=== PATIENT | female | born 1980 | race Caucasian/White ===

== ENCOUNTER 2016-12-30 17:05 | Inpatient (IN) | payer MEDICAID, SELFPAY ==
[2016-12-30] MEDS: Lactated Ringers 1,000 ML 50 ML IV ×3 (16:44→23:43)
[2016-12-30 16:59] VITALS: BMI 43.1
[2016-12-30 17:46] LABS: Absolute Lymphocyte Count 1.57 X10^3/ul (0.83-4.51); Absolute Neutrophil Count 3.9 X10^3/uL (2.0-7.7); Eosinophil# 0.05 X10^3/uL; Eosinophils% 0.9 % (0-5); Hematocrit 35.3 % (37-47); Hemoglobin 11.8 g/dl (12.0-15.0); Lymphocyte # 1.57 X10^3/ul (4.0); Lymphocyte % 26.8 % (19-41); Mean Corp Hgb Conc 33.4 g/gl (32-36); Mean Corpuscular Volume 92.7 fL (81-99); Mean Platelet Vol. 12.6 fl (6.2-12.0); Monocyte# 0.33 X10^3/uL; Monocyte% 5.6 % (0-10); Neutrophil % 66.5 % (47-70); POSITIVE COUNT NO; POSITIVE DIFFERENTIAL NO; POSITIVE MORPHOLOGY NO; Platelet Count 113 K/mm3 (150-450); RBC Distribution Width CV 13.5 % (11.6-14.6); Red Blood Count 3.81 M/mm3 (4.2-5.4); White Blood Count 5.9 K/mm3 (4.4-11.0)
[2016-12-30 17:55] LABS: International Normalized Ratio 1.1; Prothrombin Time (Protime)PT. 13.3 SECONDS (11.7-14.9)
[2016-12-30 17:56] LABS: Partial Thromboplast Time 28.4 Seconds (24.1-36.2)
[2016-12-30 18:34] LABS: Uric Acid 6.3 mg/dL (2.6-6.0)
[2016-12-30 18:38] LABS: AST(SGOT) 12 U/L (15-37); Alanine Aminotransfer ALT/SGPT 16 U/L (12-78)
[2016-12-30 19:14] LABS: Bacteria 0 SEEN /hpf (None Seen); Mucous, Urine 0 SEEN /hpf (<or=2+); Red Blood Cells-Urine 0 SEEN /hpf (0-5); Squamous Epithelial Cells - UA 0 SEEN /hpf (5-10); White Blood Cells 0 SEEN /hpf (0-5)
[2016-12-30 19:16] LABS: Color, Urine Yellow (Yellow); Glucose, Dipstick Normal (Normal); Leukocyte Esterase-Dipstick Negative /ul (Negative); Nitrite-Dipstick Negative (Negative); Occult Blood-Urine Negative /ul (Negative); Protein-Dipstick Negative (Negative); Specific Gravity, Urine 1.015 (1.002-1.030); Urine Bilirubin Dipstick Negative (Negative); Urine Clarity Sl. Cloudy (Clear); Urine Urobilinogen Normal (Normal)
[2016-12-30 19:25] LABS: Protein, Urine (Random) 23.7 mg/dL (<11.9); Protein:Creat Ratio 243 mg/g CRE (0-200)
[2016-12-30 19:57] LABS: Ketone-Dipstick 150 mg/dl (Negative)
[2016-12-30 19:58] LABS: Group B Strep DNA By PCR Negative (Negative); Internal Control PASS; Probe Check PASS; Specimen Processing Control PASS
--- NOTE | 2016-12-30 20:58 | PCM.HP.OB ---
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 - records reviewed Prior FT x 6 History preeclampsia Chronic UTI and yeast infections 1 visit in [facility] office today Allergies No Known Allergies Allergy (Verified 12/30/16 17:02) Current Medications Acetaminophen (Tylenol) 325 - 650 mg PO Q4H PRN PRN PRN Reason: PAIN OR FEVER >100.4F Al Hydroxide/Mg Hydroxide (Mylanta Ii) 15 - 30 ml PO Q4H PRN PRN PRN Reason: INDIGESTION Citric Acid/Sodium Citrate (Bicitra) 30 ml PO UD PRN Lactated Ringer's () 1,000 mls @ 50 mls/hr IV .Q20H [facility] Last Admin: 12/30/16 18:30 Dose: 50 mls/hr Nalbuphine HCl (Nubain) 5 - 10 mg IV Q3H PRN PRN PRN Reason: PAIN (-12/30) Ondansetron HCl (Zofran) 4 mg IV Q8H PRN PRN PRN Reason: NAUSEA Promethazine HCl (Phenergan (Ll)) 6.25 - 12.5 mg IV Q4H PRN PRN; Protocol PRN Reason: IF NAUSEA PERSISTS Sodium Chloride () 5 - 15 ml IV UD [facility] Last Admin: 12/30/16 19:44 Dose: Not Given Smoking Status: Never smoker Alcohol: None Drug Use: none Number of Fetus(es): 1 Physical Exam General: Alert, Oriented x3 Presentation: Cephalic Cervix Dilation (cm): 5.5 Station: -3 Effacement (%): 60 Assessment/Plan 36yo female in labor at 39 weeks Admit to L&D Patient with gestational vs chronic hypertension, preE labs reviewed S/p AROM for slightly blood tinged fluid Augment with pitocin if needed Pain - comfortable with epidural Malpresentation - ear palpable, plan for position changes Plan of care discussed with patient & all questions answered PNB ordered as no formal PNC
[2016-12-30 20:59] LABS: ALB/GLOB Ratio 0.7 RATIO (0.9-2.4); AST(SGOT) 12 U/L (15-37); Alanine Aminotransfer ALT/SGPT 14 U/L (12-78); Albumin, Serum 2.8 g/dL (3.4-5.0); Alkaline Phosphatase 193 U/L (45-117); Anion Gap 12 (5-15); BUN 7 mg/dL (7-18); Calcium,Total 8.3 mg/dL (8.5-10.1); Chloride 107 mmol/L (98-107); Creatinine, Serum 0.47 mg/dL (0.55-1.02); EST Glomerular Filtration Rate 160 mL/min (>60); Est Glom Filt Rate - Afr Amer 193 mL/min (>60); Estimated Creatinine Clearance 141.52 ml/min; Globulin 4.3 g/dL (2.3-3.5); Glucose 77 mg/dL (70-110); Potassium 3.7 mmol/L (3.5-5.1); Protein, Total 7.1 g/dL (6.4-8.2); Sodium Level 139 mmol/L (136-145)
--- NOTE | 2016-12-30 21:08 | HP.PCM_ITS ---
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 - records reviewed Prior FT x 6 History preeclampsia Chronic UTI and yeast infections 1 visit in [facility] office today Allergies No Known Allergies Allergy (Verified 12/30/16 17:02) Current Medications Acetaminophen (Tylenol) 325 - 650 mg PO Q4H PRN PRN PRN Reason: PAIN OR FEVER >100.4F Al Hydroxide/Mg Hydroxide (Mylanta Ii) 15 - 30 ml PO Q4H PRN PRN PRN Reason: INDIGESTION Citric Acid/Sodium Citrate (Bicitra) 30 ml PO UD PRN Lactated Ringer's () 1,000 mls @ 50 mls/hr IV .Q20H [facility] Last Admin: 12/30/16 18:30 Dose: 50 mls/hr Nalbuphine HCl (Nubain) 5 - 10 mg IV Q3H PRN PRN PRN Reason: PAIN (-12/30) Ondansetron HCl (Zofran) 4 mg IV Q8H PRN PRN PRN Reason: NAUSEA Promethazine HCl (Phenergan (Ll)) 6.25 - 12.5 mg IV Q4H PRN PRN; Protocol PRN Reason: IF NAUSEA PERSISTS Sodium Chloride () 5 - 15 ml IV UD [facility] Last Admin: 12/30/16 19:44 Dose: Not Given Smoking Status: Never smoker Alcohol: None Drug Use: none Number of Fetus(es): 1 Physical Exam General: Alert, Oriented x3 Presentation: Cephalic Cervix Dilation (cm): 5.5 Station: -3 Effacement (%): 60 Assessment/Plan 36yo female in labor at 39 weeks Admit to L&D Patient with gestational vs chronic hypertension, preE labs reviewed S/p AROM for slightly blood tinged fluid Augment with pitocin if needed Pain - comfortable with epidural Malpresentation - ear palpable, plan for position changes Plan of care discussed with patient & all questions answered PNB ordered as no formal PNC
[2016-12-30 22:27] LABS: Chlamydia Trachomatis by PCR Negative (Negative); Neisserai gonorrhoeae by PCR Negative (Negative); Probe Check PASS; Sample Adequacy Control PASS; Specimen Processing Control PASS
[2016-12-31] MEDS: Oxytocin 30 units/NS 500 ml 30 UNITS/500 ML IV.SOLN IV (02:34)
--- NOTE | 2016-12-31 05:07 | PCM.PN.BLA ---
Progress Note S: Patient comfortable with epidural O: cvx - 7/80/-2, cephalic (ear no longer palpable) fhts 130's with mod variability, accels, occ variables tocos irregular TAUS - vtx fetus A&P:start pitocin for labor augmentation, patient with slow cervical change Bp's normal Plan discussed with patient & her , all questions answered
[2016-12-31] MEDS: Lactated Ringers 1,000 ML 50 ML IV (05:09)
--- NOTE | 2016-12-31 07:18 | PCM.PN.BLA ---
Progress Note S: Patient comfortable with epidural O: cvx - 8/80/-2 fhts 125 with mod variability, occ variable tocos Q2-4 min A&P: cont pit induction Angelica Baltazar, kaila & taking over care
[2016-12-31] MEDS: Oxytocin 30 units/NS 500 ml 30 UNITS/500 ML IV.SOLN 334 UNITS IV (08:30)
--- NOTE | 2016-12-31 09:09 | PCM.OB.VAG ---
Vaginal Delivery Maternal Presentation: Medically Indicated Induction Method of Induction: Pitocin, Amniotomy Medical Reason for Induction: Gestational Hypertension Amniotic Membrane Rupture Type: Artificial Amniotic Fluid Description: Clear Final ROWDY: 01/06/17 Final ROWDY Source: LMP Gestational age: 39 Weeks and 1 Days Date of Procedure: 12/31/16 Pre-Operative Diagnosis: Labor Post-Operative Diagnosis: Surgery/ Procedure Performed: Spontaneous Vaginal Delivery Type of Anesthesia: Epidural Description of Procedure: of viable male over intact perineum. Vigorous infant with spontaneous cry and respirations. Baby placed on maternal chest and skin to skin initiated. Placenta delivered spontaneously via Garrison mechanism intact with 3VC. Cord blood sample collected. No vaginal lacerations noted. Vaginal sweep done, total EBL = 150cc. Sponge and needle count correct. Bonding and initiated. Presentation: ROGER Placental Delivery Description: Spontaneous Placenta Disposition: [facility] Cord Vessel Description: 3 Vessels Nuchal Cord Compression: Without compression Cord Entanglement: Around neck x 1, loose Drain: Cantor to straight drain - Removed during second stage Estimated Blood Loss: 150 Infant A gender: Male Episiotomy Description: None Laceration: None Medications given after delivery: IV Pitocin Complications: None
[2016-12-31 09:17] LABS: Rubella IgG 248.1 IU/mL
[2016-12-31 12:25] VITALS: BP 123/80; PULSE 99; RESP 18; TEMP 36.8; O2SAT 98
[2016-12-31] MEDS: Ibuprofen 600 MG Tablet PO (14:40)
[2016-12-31 16:44] VITALS: BP 111/63; PULSE 98; RESP 14; TEMP 36.9
[2016-12-31 20:30] VITALS: BP 128/68; PULSE 95; RESP 16; TEMP 36.8
--- NOTE | 2016-12-31 22:00 | NURSING ---
2129 mother requesting formula for , this is her seveneth states she using it with all her babes but still brestfeeds for 13-15months. discussed reasons for exclusively with benefits states she wants to give formula as way to help bring bilirubin down, discussed bilirubin and antibodies with babe being faith positive and that formula will not help with these, still requesting formula, then called for a huddle with dr. bedolla and Jong lafleur RN.
[2017-01-01] VITALS: BP 121/78; PULSE 85; RESP 18; TEMP 36.2
[2017-01-01 04:00] VITALS: BP 123/71; PULSE 88; RESP 18; TEMP 36.3
[2017-01-01 06:38] LABS: Hematocrit 31.3 % (37-47); Hemoglobin 10.1 g/dl (12.0-15.0); Mean Corp Hgb Conc 32.3 g/gl (32-36); Mean Corpuscular Hgb 30.4 pg (27.0-32.0); Mean Corpuscular Volume 94.3 fL (81-99); Mean Platelet Vol. 12.2 fl (6.2-12.0); Platelet Count 91 K/mm3 (150-450); RBC Distribution Width CV 13.6 % (11.6-14.6); RBC Distribution Width SD 46.8 fl (35.1-43.9); Red Blood Count 3.32 M/mm3 (4.2-5.4); White Blood Count 7.4 K/mm3 (4.4-11.0)
[2017-01-01 06:39] LABS: Scan Indicated on CBC? Y/N NO
[2017-01-01 07:33] VITALS: BP 115/79; PULSE 87; RESP 16; TEMP 36.2
[2017-01-01 08:11] LABS: HIV 1/0/2 SCREEN 4TH GEN Non Reactive (Non Reactive)
--- NOTE | 2017-01-01 08:14 | DCINST_ITS ---
Discharge Diet: No Restrictions Discharge Activity: Return to Normal Activity, May not drive while taking narcotic pain medications., May Shower May resume sexual activity in: 4-6 weeks Additional Activity Instructions:: Nothing in the vagina for 4-6 weeks. You may return to work/school in 6 weeks. Call your doctor if your incision/area has: Continuous Slow Oozing, Sudden Increased Bleeding, Increased Pain/ Swelling, Increased Redness, Foul Smelling Discharge Additional Instructions: If you experience any of the following, contact your healthcare provider. * Bleeding that soaks a pad every hour for 2 hours * Fever 100.4 or higher * Unrelieved incision or abdominal pain * Swelling, redness, discharge or bleeding from your incision or episiotomy site * Your incision begins to separate * Problems urinating (including inability to urinate or burning while urinating) . * Visual changes * Severe headache * Flu-like symptoms * Pain or redness in one of both of your breasts * Pain, warmth, tenderness or swelling in your legs, especially the calf area * Frequent nausea and vomiting * Symptoms of depression or anxiety If you experience any of the following, call 911 or go to the nearest Emergency Room. * Chest pain * Problems breathing * Seizure activity * Partial or complete paralysis of a body part, slurred speech, weakness or drooping of the face, or a sudden inability to walk or hold your balance Allergies/Adverse Reactions: Allergies No Known Allergies Allergy (Verified 12/30/16 17:02) Medications to take at Discharge Cranberry Conc/Ascorbic Acid [Cranberry 12,600 mg Softgel] 1 each PO 12/30/16 Vit No.130/Iron/FA [ Tablet] 1 each PO 12/30/16 Ibuprofen 600 mg PO Q6H PRN PRN #30 tablet 01/01/17 The following prescriptions were given: Ibuprofen 600 mg PO Q6H PRN PRN #30 tablet PRN Reason: Mild-Mod Pain (1-07/30) When: Call to make an appointment with your doctor in 6 weeks. If you had elevated Blood Pressure or 4th degree laceration you will need to be seen in 2 weeks. Primary Care Physician: Jhonny Flowers MD [Primary Care Provider] -
--- NOTE | 2017-01-01 08:14 | PCM.PN.OB ---
Subjective: S: Patient resting at this time, reports that no issues throughout night. Baby has intermittently been , she is electing to use formula also to help provide nutrition to baby as several of her other children have had jaundice. This baby is Maritza positive. Patient notes no issues with bleeding, denies any urinary issues. Interested in discharge to home today if baby is also discharged. Objective: VSS, Afebrile Hgb = 11.8 --> 10.1 Breasts soft, filling, nipples without cracks or blisters Abdomen non-tender x 4 quadrants, FF @ umbilicus Small rubra lochia, perineum intact Neg calf tenderness to palpation, trace pedal edema - Physical Exam General: Alert, Oriented x3, Cooperative HEENT: Atraumatic, Normocephalic Oral: Moist Mucosa Neck: Supple Lungs: Normal air movement Cardiovascular: Regular rate Abdomen: Soft, Non Tender, Gravid Extremities: No edema Skin: No rashes, No breakdown Musculoskeletal: No Tenderness to Palpation of Joints or Extremities Neurological: Cranial nerves II-XII grossly intact Psych/Mental Status: Normal Affect, Appropriate, Alert and oriented to time, place, person, mood and affect Vital Signs Temp Pulse Resp BP Pulse Ox 97.2 F 87 16 115/79 98 01/01/17 07:33 01/01/17 07:33 01/01/17 07:33 01/01/17 07:33 12/31/16 12:25 Oxygen Delivery Method Room Air Weight: 251 lb 5.231 oz Body Mass Index (BMI) 43.1 Intake and Output for Last 24 Hours 12/30/16 12/31/16 01/01/17 23:59 23:59 23:59 Intake Total 4408 Output Total 1750 Balance 2658 Laboratory Tests Past 24 Hrs 12/30/16 01/01/17 17:25 06:20 WBC 7.4 RBC 3.32 L Hgb 10.1 L Hct 31.3 L MCV 94.3 MCH 30.4 MCHC 32.3 RDW 13.6 RDW Differential 46.8 H Plt Count 91 L MPV 12.2 H Rubella IgG Antibody 248.1 Assessment/Plan A: 36 y/o , PPD #1 s/p P: Anticipate discharge to home pending discharge Discharge teaching reviewed Follow-up with OB/CNM in 6 weeks for visit Angelica Baltazar CNM
[2017-01-01 14:00] VITALS: BP 135/76; PULSE 91; RESP 18; TEMP 36.4
[2017-01-01 20:20] VITALS: BP 138/96; PULSE 78; RESP 16; TEMP 36.1
[2017-01-02 02:00] VITALS: BP 128/76; PULSE 89; RESP 16; TEMP 36.8
[2017-01-02 03:56] LABS: Rapid Plasmin Reagin (RPR) NONREACTIVE (NONREACTIVE)
[2017-01-02] MEDS: Ibuprofen 600 MG Tablet PO (05:00)
[2017-01-02 08:13] VITALS: BP 133/81; PULSE 81; RESP 16; TEMP 36.9; O2SAT 96
--- NOTE | 2017-01-02 09:20 | PCM.PN.BLA ---
Progress Note S: Patient did not leave last night as baby's bilirubin levels were still elevated. Baby's bilirubin levels have decreased now and patient plans to be discharged to home today. Patient reports she did not receive Diflucan medication for her yeast infection and that she desires to receive that before she goes home. Otherwise patient denies any issues or concerns. O: VSS, afebrile Nipples without cracks or blisters Abdomen soft, NT x 4 quadrants No edema noted in lower extremities, negative calf tenderness noted Scant rubra lochia, intact perineum A: 36 y/o , PPD #2, Normal PP course following P: 1) Discharge to home 2) Diflucan 150mg PO x1 for yeast infection 3) Patient declines contraception, will use NANCE at this time 4) Recommend f/u for PP visit at 6 weeks PP, patient reports she may do f/u visits with her community-based insurance sales manager Lizzie Baltazar CNM
[2017-01-02] MEDS: FLUCONAZOLE 150 MG TABLET PO (10:15)
[2017-01-02 11:38] VITALS: BP 107/71; PULSE 91; RESP 18; TEMP 36.7; O2SAT 95
[2017-01-02 15:58] LABS: HEPATITIS B SURFACE AG Negative (Negative); Hep C Antibodies <0.1 s/co ratio (0.0-0.9)
== END 2017-01-02 12:30 | disposition home or self-care (01) | DRG 774 ==
PROVIDERS: Obstetrics & Gynecology; Admitting Provider Obstetrics & Gynecology; Family Provider Family Medicine; PCP Family Medicine; Visit Provider Obstetrics & Gynecology
DX: O13.4 Gestational [pregnancy-induced] hypertension without significant proteinuria, complicating childbirth (principal); O98.82 Other maternal infectious and parasitic diseases complicating childbirth; O69.82X0 Labor and delivery complicated by other cord entanglement, without compression, not applicable or unspecified; B37.9 Candidiasis, unspecified; O32.8XX0 Maternal care for other malpresentation of fetus, not applicable or unspecified; Z3A.39 39 weeks gestation of pregnancy; Z37.0 Single live birth
CPT/HCPCS: 59025; 59050; 80053; 81001; 82570; 84156; 84450; 84460; 84550; 85025; 85027; 85610; 85730; 86592; 86703; 86762; 86803; 86850; 86900; 87081; 87086; 87088; 87340; 87491; 87591; 87653; 99218; J7120; A4216; G0378

== ENCOUNTER 2020-10-27 20:45 | Outpatient (CLI) | payer OTHER, SELFPAY ==
[2020-10-27] VITALS (37 sets, daily range): BP systolic 120–182; BP diastolic 68–103; PULSE 86–108; RESP 16; TEMP 36.6–37.1; O2SAT 93–98; BMI 47.9
[2020-10-27] MEDS: Labetalol (Prefilled) 20 MG/4 ML IV (21:53)
[2020-10-27 21:54] LABS: ROM Internal Control Test YES-OK TO RESULT pt. (Internal QC); ROM Patient Test Negative (Negative)
[2020-10-27] MEDS: Magnesium Sulfate 4gm/100mL 2 GM/50 ML IV.SOLN. IV (22:15)
[2020-10-27 22:17] LABS: Color, Urine Yellow (Yellow); Glucose, Dipstick Normal (Normal); Ketone-Dipstick 5 mg/dl (Negative); Leukocyte Esterase-Dipstick Negative /ul (Negative); Nitrite-Dipstick Negative (Negative); Occult Blood-Urine Negative /ul (Negative); Protein-Dipstick Negative (Negative); Urine Bilirubin Dipstick Negative (Negative); Urine Clarity Sl. Cloudy (Clear); Urine Urobilinogen Normal (Normal); Urine pH 6.5 (5.0 - 8.0)
[2020-10-27 22:18] LABS: Absolute Lymphocyte Count 1.41 X10^3/uL (0.83-4.51); Absolute Neutrophil Count 5.2 X10^3/uL (2.0-7.7); Basophil# 0.01 X10^3/uL; Basophil% 0.1 % (0-1); Eosinophil# 0.22 X10^3/uL; Eosinophils% 3.1 % (0-5); Hematocrit 36.4 % (37-47); Hemoglobin 12.1 g/dL (12.0-15.0); Lymphocyte # 1.41 X10^3/ul (0.83-4.51); Lymphocyte % 19.6 % (19-41); Mean Corp Hgb Conc 33.2 g/dL (32-36); Mean Corpuscular Hgb 30.7 pg (27.0-32.0); Mean Corpuscular Volume 92.4 fL (81-99); Mean Platelet Vol. 14.3 fl (6.2-12.0); Monocyte# 0.39 X10^3/uL; Monocyte% 5.4 % (0-10); NRBC Flagged by Analyzer 0 % (0-5); Neutrophil # 5.15 X10^3/uL (2.7-7.7); Neutrophil % 71.5 % (47-70); Platelet Count 128 K/mm3 (150-450); RBC Distribution Width CV 13.1 % (11.6-14.6); RBC Distribution Width SD 43.8 fl (35.1-43.9); Red Blood Count 3.94 M/mm3 (4.2-5.4); White Blood Count 7.2 K/mm3 (4.4-11.0)
[2020-10-27] MEDS: Magnesium Sulfate 4gm/100mL 4 GM/100 ML IV.SOLN. IV (22:22)
[2020-10-27] MEDS: Magnesium Sulfate 20 GM/500 ML BAG IV (22:25)
[2020-10-27] MEDS: Labetalol (Prefilled) 20 MG/4 ML 40 MG IV (22:30)
[2020-10-27] MEDS: Betamethasone/Betamethasone 30 MG/5 ML Vial 12 MG IM (22:35)
[2020-10-27 22:38] LABS: Bacteria 0 SEEN /hpf (None Seen); Mucous, Urine 0 SEEN /hpf (<or=2+); Red Blood Cells-Urine 0 SEEN /hpf (0-5); Squamous Epithelial Cells - UA 0 SEEN /hpf (5-10); White Blood Cells 0 SEEN /hpf (0-5)
[2020-10-27 22:42] LABS: ALB/GLOB Ratio 0.6 RATIO (0.9-2.4); AST(SGOT) 22 U/L (15-37); Alanine Aminotransfer ALT/SGPT 29 U/L (13-56); Albumin, Serum 2.7 g/dL (3.2-5.0); Alkaline Phosphatase 239 U/L (45-117); Anion Gap 12 (5-15); BUN 8 mg/dL (7-18); BUN/Creat Ratio 16.2 RATIO (10-20); Calcium,Total 8.7 mg/dL (8.5-10.1); Chloride 109 mmol/L (98-107); EST Glomerular Filtration Rate 146 mL/min (>60); Est Glom Filt Rate - Afr Amer 177 mL/min (>60); Estimated Creatinine Clearance 127.86 ml/min; Globulin 4.3 g/dL (2.2-4.2); Glucose 73 mg/dL (74-106); LDH 168 U/L (84-246); Potassium 3.4 mmol/L (3.5-5.1); Sodium Level 139 mmol/L (136-145)
[2020-10-27 22:50] LABS: Protein, Urine (Random) < 6.0 mg/dL (<11.9)
[2020-10-27 23:01] LABS: Color, Urine Yellow (Yellow); Urine Clarity Sl Cloudy (Clear)
[2020-10-27 23:02] LABS: Glucose, Dipstick Normal (Normal); Ketone-Dipstick 5 mg/dl (Negative); Leukocyte Esterase-Dipstick Negative /ul (Negative); Nitrite-Dipstick Negative (Negative); Occult Blood-Urine Negative /ul (Negative); Protein-Dipstick Negative (Negative); Urine Bilirubin Dipstick Negative (Negative); Urine Urobilinogen Normal (Normal); Urine pH 6.5 (5.0 - 8.0)
[2020-10-27] MEDS: Labetalol (Prefilled) 20 MG/4 ML 80 MG IV (23:05)
--- NOTE | 2020-10-27 23:14 | PCM.HP.BLA ---
History and Physical Date of Admission: 10/27/20 Chief complaint: Leakage of fluid History of present illness: 40-year-old G 15 P7 at 33 weeks and 1 day with ROWDY: 12/14/2020 by LMP arrives with leakage of clear fluid. Denies headache, visual changes, chest pain, shortness of breath, nausea vomiting, right upper quadrant pain. Patient states good movement. 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 Patient's previous pregnancies have questionable hypertensive issues, patient poor historian uncertain of hypertensive issues was never given medications Past medical history: Questionable chronic hypertension Medications: None Past surgical history: Cholecystectomy Allergies: No known drug allergies Social history: Denies smoking, alcohol use, drug use Family history: Denies history DVT or PE Review of systems: Besides the above pertinent positives a full review of systems was performed and found to be negative Physical exam: Vitals: Blood pressure 138/79 pulse 88 SPO2 93% on room air General: Normal-appearing no acute distress HEENT: Normocephalic atraumatic no cervical of adenopathy Cardiac/respiratory: Nonlabored breathing, no use of accessory muscles Abdomen: Soft, nontender, gravid Extremities: No peripheral edema normal peripheral pulses Psych: Normal affect normal demeanor nonpressured speech Bedside ultrasound: Cephalic. KEKE within normal limits Assessment plan: 40-year-old G 15 P7 at 33 weeks and 1 day arrives with leakage of fluid, rule out rupture negative ROM KEKE within normal limits at bedside. Blood patient with severe range blood pressures that are persistent now status post labetalol IV 20 mg, 40mg, 80mg. Given labetalol 200 mg p.o. HELLP labs with mild thrombocytopenia, otherwise within normal limits. Patient asymptomatic. Started on magnesium 6 g bolus to run at 2 g an hour. Cervix currently 3 cm, painful contractions based on this information will treat as labor given Celestone and started on penicillin. Educated patient on these findings and discuss risks of stroke, heart attack, seizures along with risks. Discussed magnesium for treatment of blood pressure control. Educated patient on delivery plan at 34 weeks if blood pressure stable and cervix unchanged. Based on need for antepartum stay discussed with Dr. Vasquez [facility] transport to [facility], Dr. Vasquez agrees. Educated patient on transport plan, patient agrees. To transport to [facility] [place]
[2020-10-27 23:18] LABS: Amphetamine Urine VISTA NEGATIVE (<1000 ng/mL); Barbiturate Urine VISTA NEGATIVE (< 200 ng/mL); Benzodiazepine Urine VISTA NEGATIVE (< 200 ng/mL); Cocaine Urine VISTA NEGATIVE (< 300 ng/mL); Ecstacy Urine VISTA NEGATIVE (< 500 ng/mL); Methadone Urine VISTA NEGATIVE (< 300 ng/mL); PCP Urine VISTA NEGATIVE (< 25 ng/mL); THC Urine VISTA NEGATIVE (< 50 ng/mL); Vista UDS pH Range 6
[2020-10-27] MEDS: Labetalol 200 MG Tablet PO (23:30)
[2020-10-27 23:31] LABS: Group B Strep DNA By PCR Negative (Negative); Internal Control PASS; Probe Check PASS; Specimen Processing Control PASS
[2020-10-28 00:03] VITALS: PULSE 88; O2SAT 97
[2020-10-28 00:05] VITALS: O2SAT 93
[2020-10-28 00:06] VITALS: BP 129/69; PULSE 88; PULSE 89; RESP 16; O2SAT 98
[2020-10-28 00:08] VITALS: PULSE 89; O2SAT 98
[2020-10-28 01:23] LABS: Chlamydia Trachomatis by PCR Negative (Negative); Neisserai gonorrhoeae by PCR Negative (Negative); Probe Check PASS; Sample Adequacy Control PASS; Specimen Processing Control PASS
[2020-10-28 09:41] LABS: Rubella IgG Reactive (Nonreactive); Syphilis Antibodies Non-reactive
[2020-10-28 09:59] LABS: HIV - WCH Non-Reactive (Nonreactive); Hepatitis B Surface Antigen Non-Reactive (Nonreactive); Hepatitis C Antibody Non-Reactive (Nonreactive)
--- NOTE | 2020-11-05 10:48 | NURSING ---
Mag time was changed per instructions by geography department chair. pt was transferred out and needed for pharmacy record.
== END 2020-10-28 00:10 | disposition home or self-care (01) ==
LOC: WPOUT 20:56 → WP 20:57
PROVIDERS: PCP Family Medicine; Referring Provider Obstetrics & Gynecology; Visit Provider Obstetrics & Gynecology
DX: O60.03 Preterm labor without delivery, third trimester (principal); O99.112 Other diseases of the blood and blood-forming organs and certain disorders involving the immune mechanism complicating pregnancy, second trimester; O09.43 Supervision of pregnancy with grand multiparity, third trimester; D69.6 Thrombocytopenia, unspecified; Z3A.34 34 weeks gestation of pregnancy
CPT/HCPCS: 96365; 96367; 96368; 96372; 96375; 59025; 59050; 80053; 80307; 81001; 81002; 82570; 83615; 84112; 84156; 85025; 86703; 86762; 86780; 86803; 86850; 86900; 86901; 87081; 87086; 87088; 87340; 87426; 87491; 87591; 87653; J0702